=== PATIENT | male | born 1990 | race Caucasian/White ===

== ENCOUNTER 2018-03-25 01:20 | Emergency (ER) | payer OTHER ==
[2018-03-25] MEDS ORDERED: LORazepam 2 MG/ML INJ IM STA (02:17)
--- NOTE | 2018-03-25 02:17 | ED ---
Psych HPI - General Source: police Mode of arrival: ambulatory <Phyllis Mena - Last Filed: 03/25/18 17:03> <Marylou Mcmillan - Last Filed: 03/28/18 00:45> - General Chief Complaint: Psychiatric Symptoms Stated Complaint: Mental health Time Seen by Provider: 03/25/18 01:29 - History of Present Illness Initial Comments: 28-year-old male patient presents to the emergency department today for psychiatric evaluation. Patient was brought in by [email or web address] police after he had an argument with his girlfriend. Patient reportedly sent pictures of some self-inflicted cuts to his left forearm. She called the police because she was concern for his well-being. Patient does admit to drinking alcohol this evening. He denies any suicidal or homicidal ideation. Please did complete a petition. Patient states that he has had some mental health issues in the past and previously attempted suicide. Patient denies any recent rash, fever, chills , shortness breath, chest pain, abdominal pain, nausea, vomiting, diarrhea, constipation, back pain, numbness, tingling, dizziness, weakness, hematuria, dysuria, urinary urgency, urinary frequency, headache, visual changes, or any other complaints. (Phyllis Mena) - Related Data Allergies Allergy/AdvReac Type Severity Reaction Status Date / Time No Known Allergies Allergy Verified 03/25/18 01:26 Review of Systems ROS Other: All systems not noted in ROS Statement are negative. <Phyllis Mena - Last Filed: 03/25/18 17:03> ROS Other: All systems not noted in ROS Statement are negative. <Marylou Mcmillan - Last Filed: 03/28/18 00:45> ROS Statement: Those systems with pertinent positive or pertinent negative responses have been documented in the HPI. Past Medical History Past Medical History: Hypertension Additional Past Medical History / Comment(s): Kidney stones. History of Any Multi-Drug Resistant Organisms: None Reported Past Surgical History: No Surgical Hx Reported Past Psychological History: No Psychological Hx Reported Smoking Status: Current some day smoker Past Alcohol Use History: Occasional Past Drug Use History: Marijuana <Phyllis Mena - Last Filed: 03/25/18 17:03> General Exam Limitations: no limitations General appearance: alert, in no apparent distress, other (This is a well- developed, well-nourished adult male patient in no acute distress. Vital signs upon presentation are temperature 98.6F, pulse 116, respirations 20, blood pressure 176/113, pulse ox 98% on room air.) Eye exam: Present: normal appearance, PERRL, EOMI. Absent: scleral icterus, conjunctival injection, periorbital swelling ENT exam: Present: normal exam, normal oropharynx, mucous membranes moist Respiratory exam: Present: normal lung sounds bilaterally. Absent: respiratory distress, wheezes, rales, rhonchi, stridor Cardiovascular Exam: Present: regular rate, normal rhythm, normal heart sounds. Absent: systolic murmur, diastolic murmur, rubs, gallop, clicks GI/Abdominal exam: Present: soft, normal bowel sounds. Absent: distended, tenderness, guarding, rebound, rigid Extremities exam: Present: full ROM, normal capillary refill, other (There are multiple superficial lacerations to the volar aspect of the left forearm. Remainder of skin is pink, warm, and dry. Cap refills less than 3 seconds. Radial pulses 2+ and equal bilaterally.). Absent: normal inspection, tenderness , pedal edema, joint swelling, calf tenderness Neurological exam: Present: alert, oriented X3, CN II-XII intact Psychiatric exam: Present: normal affect, normal mood Skin exam: Present: warm, dry, intact, normal color. Absent: rash <Phyllis Mena M - Last Filed: 03/25/18 17:03> Vital Signs 03/25/18 03/25/18 03/25/18 01:22 07:04 07:18 Temperature 98.6 F 98.0 F 98.1 F Pulse Rate 116 H 108 H 107 H Respiratory 20 16 18 Rate Blood Pressure 176/113 164/89 158/93 O2 Sat by Pulse 98 98 99 Oximetry Medical Decision Making <Phyllis Mena M - Last Filed: 03/25/18 17:03> <Marylou Mcmillan - Last Filed: 03/28/18 00:45> - Medical Decision Making 28-year-old male patient presented to the emergency department today petitioned by the police department after he second pictures of self-inflicted injuries to his girlfriend. Patient denies suicidal or homicidal ideation. Patient was intoxicated upon arrival and will be clear for emergency psychiatric services evaluation at 05 30. Care is handed off to my attending Dr. Mcmillan at 0500 who will follow patient until disposition. (Phyllis Mena) She was evaluated by psych psychiatric nurse when he was sober. Patient denied any suicidal or homicidal ideations. He did admit to inflicting superficial wounds on himself while upset, does have good follow-up. Patient stable for discharge home all questions pertaining care answered and the patient was discharged home (Marylou Mcmillan) - Lab Data Lab Results 03/25/18 Range/Units 02:12 Urine Opiates Screen Not Detected (NotDetected) Ur Oxycodone Screen Not Detected (NotDetected) Urine Methadone Screen Not Detected (NotDetected) Ur Propoxyphene Screen Not Detected (NotDetected) Ur Barbiturates Screen Not Detected (NotDetected) U Tricyclic Antidepress Not Detected (NotDetected) Ur Phencyclidine Scrn Not Detected (NotDetected) Ur Amphetamines Screen Not Detected (NotDetected) U Methamphetamines Scrn Not Detected (NotDetected) U Benzodiazepines Scrn Not Detected (NotDetected) Urine Cocaine Screen Not Detected (NotDetected) U Marijuana (THC) Screen Detected H (NotDetected) Disposition <Phyllis Mena - Last Filed: 03/25/18 17:03> Is patient prescribed a controlled substance at d/c from ED?: No Time of Disposition: 07:02 <Marylou Mcmillan - Last Filed: 03/28/18 00:45> Clinical Impression: Situational depression Disposition: HOME SELF-CARE Condition: Stable Referrals: Bar Marcum MD [Primary Care Provider] - 1-2 days
[2018-03-25 02:38] LABS: Amphetamine Screen,Urine Not Detected (NotDetected); Barbiturate Screen,Urine Not Detected (NotDetected); Benzodiazepines Screen,Urine Not Detected (NotDetected); Cocaine Screen,Urine Not Detected (NotDetected); Methadone Screen, Urine Not Detected (NotDetected); Opiate Screen,Urine Not Detected (NotDetected); Oxycodone Screen, Urine Not Detected (NotDetected); Phencyclidine Screen,Urine Not Detected (NotDetected); Tricyclic Antidepressant,Urine Not Detected (NotDetected); Urn Cannabinoid Scrn Detected (NotDetected)
[2018-03-25 07:20] VITALS: BP 158/93; PULSE 107; RESP 18; TEMP 98.1
== END 2018-03-25 07:18 | disposition home or self-care (01) ==
LOC: EC 01:20
DX: F43.21 Adjustment disorder with depressed mood (principal); F17.200 Nicotine dependence, unspecified, uncomplicated
CPT/HCPCS: 82075; 80306; 99283; 96372; J2060